=== PATIENT | male | born 1990 | race Caucasian/White ===

== ENCOUNTER 2020-08-05 14:59 | Emergency (ER) | payer BC, SELFPAY ==
[2020-08-05 15:18] VITALS: BP 175/95; PULSE 76; RESP 16; TEMP 36.9; O2SAT 98; BMI 34.2
--- NOTE | 2020-08-05 15:23 | XRR_ITS ---
PROCEDURE INFORMATION: Exam: XR Right Foot Complete Exam date and time: 08/05/2020 3:24 PM Age: 30 years old Clinical indication: Injury or trauma; Injury history: Hit table pain in 4th and 5th toes; Initial encounter; Blunt trauma; Right lesser toe(s) TECHNIQUE: Imaging protocol: XR Right foot. Views: 3 or more views. COMPARISON: No relevant prior studies available. FINDINGS: Bones/joints: There is a comminuted fracture of the diaphysis of the 5th proximal phalanx. No dislocation. No additional acute fracture is identified. Soft tissues: No foreign body. XR/XR foot RT min 3V* [id number] IMPRESSION: There is a comminuted fracture of the diaphysis of the 5th proximal phalanx.
--- NOTE | 2020-08-05 15:23 | W.ED.EXTPRO ---
HPI - Extremity Problem General: Chief complaint: Extremity Injury, Lower Stated complaint: RIGHT FOOT PAIN Time Seen by Provider: 08/05/20 15:02 History of Present Illness: HPI Narrative: Patient got tripped up with a dog yesterday striking his right foot against a hard object and now has pain in his right foot down by the #4 and 5 toes along the lateral border with bruising Complaint: extremity pain Onset (ago): day(s) Pain Consistency: constant Location: right and lower extremity Severity scale (1-10): 5 Quality: aching Radiation: none Relieving factors: immobilization Exacerbating factors: range of motion, weight bearing and walking Associated symptoms: Reports no associated symptoms; Deny chest pain, fever(s) or rash Review of Systems Const: Denies: fever(s), chills or body aches Eyes: Denies: change in vision or blurry vision ENMT: Denies: throat pain or nasal congestion Card: Denies: chest pain or dyspnea on exertion Resp: Denies: dyspnea, productive cough or non-productive cough GI: Denies: abdominal pain, nausea or vomiting : Denies: difficulty urinating Musc: Reports: extremity pain (Right foot) Skin/Breast: Denies: rash Neuro: Denies: headache(s) Psych: Denies: anxiety or depression Kade/Lymph: Denies: easy bruising PFS ED PFSH: Social History (Updated 08/05/20 @ 15:21 by Vane Antonio RN) Smoking and tobacco status: never smoked Alcohol intake: never Physical Exam Const: COMMON NORMALS: no acute distress, average body habitus and patient oriented x3 HENMT: COMMON NORMALS: normocephalic HEAD & SCALP: normal to inspection and normocephalic FACE & SINUS: normal facial exam Eye: COMMON NORMALS: conjunctivae normal GENERAL EYE: appearance normal, both eyes and all related structures CONJUNCTIVA: Yes conjunctivae normal Neck/C-Spine: COMMON NORMALS: no JVD Chest: COMMONS NORMALS: normal inspection of the chest Resp: COMMON NORMALS: normal respiratory effort Cardio: COMMON NORMALS: no JVD Extremity: COMMON NORMALS: normal to inspection and full ROM RIGHT LOWER EXTREMITY: Yes foot & digits (Right foot with tenderness between the #4 and 5 toes with bruising mild bruising along the lateral border sole of foot on) Neuro: COMMON NORMALS: patient oriented x3 Course Vital Signs: Vital signs: Vital Signs Temperature 98.4 F 08/05/20 15:18 Pulse Rate 85 08/05/20 16:04 Respiratory Rate 18 08/05/20 16:04 Blood Pressure 149/88 08/05/20 16:04 Pulse Oximetry 99 08/05/20 16:04 Discharge Plan Discharge Patient Disposition: Home Clinical Impression: Closed fracture of toe Qualifiers: Encounter type: initial encounter Toe: lesser toe Phalanx: proximal Fracture alignment: nondisplaced Laterality: right Qualified Code(s): S92.514A - Nondisplaced fracture of proximal phalanx of right lesser toe(s), initial encounter for closed fracture Condition: Stable Prescriptions: No Action atorvastatin 10 mg Tablet 10 mg PO DAILY RF: 0 baclofen 10 mg Tablet 20 mg PO TID RF: 0 metformin 1,000 mg Tablet 1,000 mg PO BID RF: 0 lisinopril 5 mg Tablet 5 mg PO DAILY RF: 0 Cymbalta 60 mg Capsule,Delayed Release(Dr/Ec) 60 mg PO BEDTIME RF: 0 Lantus Solostar U-100 Insulin 100 unit/mL (3 mL) Insulin Pen See Rx Instructions .ROUTE .COMPLEX RF: 0 gabapentin 300 mg Tablet Extended Release 24 Hr See Rx Instructions .ROUTE .COMPLEX RF: 0 Ocrevus 30 mg/mL Solution See Rx Instructions .ROUTE .COMPLEX RF: 0 Humalog U-100 Insulin See Rx Instructions .ROUTE .COMPLEX RF: 0 Discharge Orders: Discharge Order (Routine); Ordered 08/05/20 Ordered By: Keith Mims Discharge Diet: Usual diet Discharge Activity: Increase activity as tolerated Patient Instructions: Toe Fracture (ED) Activity Restrictions/Additional Instructions: Wear hard soled shoes. Apply ice to area as needed. Can take Tylenol or ibuprofen for discomfort. Keep sanju tape on for the next 2 to 4 weeks. Follow-up with the primary care provider if needed. Discharge Date/Time: 08/05/20 16:05 Coding Level of Care Code ED Audio Visual Design Engineer for Ceasar Fwmari aluisa Exam Comprehensive
[2020-08-05 16:04] VITALS: BP 149/88; PULSE 85; RESP 18; O2SAT 99
== END 2020-08-05 16:05 | disposition home or self-care (01) ==
PROVIDERS: Emergency Provider Nurse Practitioner Family
DX: S92.514A Nondisplaced fracture of proximal phalanx of right lesser toe(s), initial encounter for closed fracture (principal); Z79.4 Long term (current) use of insulin; W01.0XXA Fall on same level from slipping, tripping and stumbling without subsequent striking against object, initial encounter
CPT/HCPCS: 12345; 29550; 73630; 99281; 99282

== ENCOUNTER → 2020-09-28 09:53 | Day surgery (SDC) | payer BC, OTHER, SELFPAY ==
[2020-09-28 10:46] VITALS: BP 166/93; PULSE 90; RESP 18; TEMP 36.1; O2SAT 97; BMI 34.9
[2020-09-28] MEDS: diphenhydrAMINE 50 mg/mL SDV 1mL 25 MG IVP (11:05)
--- NOTE | 2020-09-28 15:33 | SUR.PREOP ---
patient infusion done, ambulated to bathroom. patient will wait required 1 hour post infusion time.
--- NOTE | 2020-09-28 16:32 | SUR.PREOP ---
patient waited for 1 hour post infusion. no reaction noted. pt left ambulatory.
== END ==
PROVIDERS: PCP Family Medicine; Visit Provider Psychiatry & Neurology Neurology
DX: G35 Multiple sclerosis (principal)
CPT/HCPCS: 96365; 96366; J1200; J2350; J7040

== ENCOUNTER 2020-10-01 11:58 | Emergency (ER) | payer BC, SELFPAY ==
[2020-10-01 12:03] VITALS: BP 155/101; PULSE 126; RESP 18; TEMP 36.3; O2SAT 95; BMI 34.9
--- NOTE | 2020-10-01 13:13 | W.ED.NAVMDI ---
HPI - Nausea/Vomiting/Diarrhea General: Chief complaint: Nausea/Vomiting/Diarrhea Stated complaint: Nausea/Weak/Dizzy Time Seen by Provider: 10/01/20 12:15 Source: patient Mode of arrival: ambulatory Limitations: no limitations History of Present Illness: HPI Narrative: Patient is a 30-year-old male with a history of diabetes and multiple sclerosis who presents to the emergency department with nausea and vomiting for a few days. He states that 6 days ago he had an MRI of his brain at [facility] in [place], and then 2 days after that he had these IV infusion of his multiple sclerosis medication. Since then he has been feeling unwell with generalized body aches, nausea and vomiting. He states that he is unable to keep anything down. The nausea and vomiting got really bad about 2 days ago. He has chills and night sweats but no fever on checking. He just feels really bad and unsteady on his feet so he came here to be seen. MD elicited complaint: nausea and vomiting Associated nausea: Yes Associated symtoms: Reports diaphoresis, dizziness, fevers/chills, malaise, myalgias, nausea and weakness; Denies altered mental status, anxiety, bloating, change in vision, chest pain, cough, decreased urine output, dysuria, epistaxis, fatigue, fecal incontinence, headache(s), anorexia, numbness, palpitations, rash, short of breath, syncope, tenesmus or tinnitus Review of Systems General: Reports: 10 or more systems reviewed and unremarkable except in HPI and below Const: Reports: malaise and diaphoresis; Denies: fatigue Eyes: Denies: change in vision ENMT: Denies: tinnitus or epistaxis Card: Denies: chest pain, palpitations or syncope Resp: Denies: dyspnea, productive cough or non-productive cough GI: Reports: nausea; Denies: bloating or fecal incontinence : Denies: dysuria Musc: Denies: neck pain, back pain or extremity swelling Skin/Breast: Denies: rash, pruritus or erythema Neuro: Reports: dizziness; Denies: headache(s) Psych: Denies: anxiety Endo: Denies: polyuria, polydipsia or tired all the time PFSH ED PFSH: Social History Smoking and tobacco status: never smoked Alcohol intake: never Physical Exam Const: COMMON NORMALS: no acute distress, average body habitus, patient oriented x3, no limitations, healthy appearing, alert and well nourished EXAM LIMITATIONS: no altered mental status HENMT: COMMON NORMALS: normocephalic, atraumatic and moist oral mucous membranes HEAD & SCALP: normocephalic and atraumatic Neck/C-Spine: COMMON NORMALS: no meningeal signs and no JVD Resp: COMMON NORMALS: normal respiratory effort, No retractions, No use of accessory muscles, clear to auscultation bilaterally and percussion normal AUSCULTATION: clear to auscultation bilaterally PERCUSSION: percussion normal Cardio: COMMON NORMALS: no JVD, regular rate, regular rhythm, S1 normal heart sound present, S2 normal heart sound present, No gallops present (Cardio), No clicks present (Cardio), No murmurs present (Cardio), No rub (Cardio) and Peripheral pulses 2+ throughout RATE: regular rate RHYTHM: regular rhythm HEART SOUNDS: S1 normal heart sound present and S2 normal heart sound present PERIPHERAL PULSES: Peripheral pulses 2+ throughout GI: COMMON NORMALS: Normal to inspection, nondistended, normoactive bowel sounds present, Soft to palpation, non-tender, No hepatosplenomegaly present, no masses and no bruits PALPATION: Yes Soft to palpation and Yes No hepatosplenomegaly present Extremity: COMMON NORMALS: normal to inspection, full ROM, capillary refill normal, no calf tenderness and no pedal edema Neuro: COMMON NORMALS: patient oriented x3 SENSORIUM/ORIENTATION: Yes alert MENINGEAL SIGNS: Yes no meningeal signs Skin: COMMON NORMALS: no rashes or lesions noted, no wounds, turgor normal, no jaundice, no petechiae and no mottling GENERAL SKIN EXAM: no rashes or lesions noted and turgor normal Course Reevaluation(s): Reevaluation #1: Discussed his lab and imaging findings with him. Negative for acute findings. Negative Covid and influenza. He feels much improved after the IV fluids and he feels that all he needed as he felt he was dehydrated. He wants to be discharged home. We will discharge him home with a prescription for antiemetic. He voiced understanding and is in agreement with the plan. Time: 18:31 Vital Signs: Vital signs: Vital Signs Temperature 97.3 F L 10/01/20 12:03 Pulse Rate 90 10/01/20 19:08 Respiratory Rate 18 10/01/20 16:56 Blood Pressure 141/74 10/01/20 19:08 Pulse Oximetry 96 10/01/20 19:08 MDM - Nausea/Vomiting/Diarrhea MDM Narrative: Medical decision making narrative: Patient who presented to the emergency department with nausea and vomiting. He has a history of multiple sclerosis and symptoms started after he received an infusion of his MS medication. I suspect his nausea and vomiting may be secondary to this but he obtain much improvement after normal saline and an antiemetic. Evaluation in the emergency department was unremarkable and the patient is discharged home to follow-up with his regular providers. Medical Records: Attestation: I reviewed the patient's medical records. Lab Data: Attestation: I reviewed the patient's lab results. Labs: Lab Results 10/01/20 10/01/20 10/01/20 Range/Units 13:25 13:25 13:25 WBC 9.2 (4.0-10.0) 10^3/ uL RBC 5.46 H (4.1-5.3) 10^6/u L Hgb 15.6 (11.7-16.6) g/dL Hct 46.0 (42.0-52.0) % MCV 84.2 (80-94) fL MCH 28.6 (28.0-34.0) pg MCHC 33.9 (30.0-36.0) g/dL RDW 13.2 (12.1-15.1) % Plt Count 278 (130-400) 10^3/c mm MPV 10.8 H (7.4-10.4) fL Neut % (Auto) 66.6 % Lymph % (Auto) 23.5 % Bollinger % (Auto) 7.1 % Eos % (Auto) 1.8 % Baso % (Auto) 0.5 % Neut # (Auto) 6.11 (1.8-7.7) 10^3/u L Lymph # (Auto) 2.2 (0.8-4.8) 10^3/u L Bollinger # (Auto) 0.7 (0.2-0.9) 10^3/u L Eos # (Auto) 0.2 (0.0-0.8) 10^3/u L Baso # (Auto) 0.1 (0.0-0.1) 10^3/u L Nucleated RBC % (a uto) 0 % Nucleated RBCs # 0.0 /100WBC Sodium 136 (136-145) mmol/L Potassium 4.1 (3.5-5.1) mmol/L Chloride 98 (98-107) mmol/L Carbon Dioxide 24 (22-29) mmol/L Anion Gap 18.1 (5-19) BUN 18 (6-20) mg/dL Creatinine 0.6 L (0.7-1.2) mg/dL GFR Calculation 158.2 H (90-130) mL/min Glucose 171 H (65-115) mg/dL Calculated Osmolal ity 288 (285-295) mOsm/k g Lactate 3.0 H (0.5-2.2) mmol/L Calcium 9.8 (8.5-10.5) mg/dL Magnesium 1.8 (1.7-2.3) mg/dL Total Bilirubin 0.5 (0.15-1.2) mg/dL AST 34 (0-40) U/L ALT 55 H (0-41) U/L Alkaline Phosphata se 68 (40-130) IU/L Creatine Kinase 67 (39-308) U/L C-Reactive Protein 8.8 H (0.0-4.9) mg/L Total Protein 7.6 (6.6-8.7) g/dL Albumin 4.8 (3.5-5.2) g/dL Globulin 2.8 (1.3-4.6) g/dL Lipase 18 (13-60) U/L Urine Color (Yellow) Urine Appearance (CLEAR) Urine pH (5-7) Ur Specific Gravit y (1.005-1.030) Urine Protein (Negative) Urine Glucose (UA) (Normal) Urine Ketones (Negative) Urine Blood (Negative) Urine Nitrate (Negative) Urine Bilirubin (Negative) Urine Urobilinogen (Negative) mg/dL Ur Leukocyte Jana ase (Negative) Urine RBC (0-2) /hpf Urine WBC (0-5) /hpf Ur Squamous Epith Cells (0-5) /hpf Amorphous Sediment Urine Bacteria (NONE) /hpf Hyaline Casts /lpf Fine Granular Cast s /lpf Coarse Granular Ca sts /lpf Urine Mucus /hpf Influenza Type A A g (Negative) Influenza Type B A g (Negative) SARS-CoV-2 Ag (Rap id) (Negative) 10/01/20 10/01/20 10/01/20 Range/Units 13:39 13:46 14:13 WBC (4.0-10.0) 10^3/ uL RBC (4.1-5.3) 10^6/u L Hgb (11.7-16.6) g/dL Hct (42.0-52.0) % MCV (80-94) fL MCH (28.0-34.0) pg MCHC (30.0-36.0) g/dL RDW (12.1-15.1) % Plt Count (130-400) 10^3/c mm MPV (7.4-10.4) fL Neut % (Auto) % Lymph % (Auto) % Bollinger % (Auto) % Eos % (Auto) % Baso % (Auto) % Neut # (Auto) (1.8-7.7) 10^3/u L Lymph # (Auto) (0.8-4.8) 10^3/u L Bollinger # (Auto) (0.2-0.9) 10^3/u L Eos # (Auto) (0.0-0.8) 10^3/u L Baso # (Auto) (0.0-0.1) 10^3/u L Nucleated RBC % (a uto) % Nucleated RBCs # /100WBC Sodium (136-145) mmol/L Potassium (3.5-5.1) mmol/L Chloride (98-107) mmol/L Carbon Dioxide (22-29) mmol/L Anion Gap (5-19) BUN (6-20) mg/dL Creatinine (0.7-1.2) mg/dL GFR Calculation (90-130) mL/min Glucose (65-115) mg/dL Calculated Osmolal ity (285-295) mOsm/k g Lactate (0.5-2.2) mmol/L Calcium (8.5-10.5) mg/dL Magnesium (1.7-2.3) mg/dL Total Bilirubin (0.15-1.2) mg/dL AST (0-40) U/L ALT (0-41) U/L Alkaline Phosphata se (40-130) IU/L Creatine Kinase (39-308) U/L C-Reactive Protein (0.0-4.9) mg/L Total Protein (6.6-8.7) g/dL Albumin (3.5-5.2) g/dL Globulin (1.3-4.6) g/dL Lipase (13-60) U/L Urine Color Yellow (Yellow) Urine Appearance Clear (CLEAR) Urine pH 5 (5-7) Ur Specific Gravit y 1.020 (1.005-1.030) Urine Protein Trace (Negative) Urine Glucose (UA) Norm (Normal) Urine Ketones Negative (Negative) Urine Blood Neg (Negative) Urine Nitrate Negative (Negative) Urine Bilirubin 1+ H (Negative) Urine Urobilinogen Norm (Negative) mg/dL Ur Leukocyte Jana ase Negative (Negative) Urine RBC None (0-2) /hpf Urine WBC 0-4 H (0-5) /hpf Ur Squamous Epith Cells None (0-5) /hpf Amorphous Sediment Not Reportable Urine Bacteria Trace (NONE) /hpf Hyaline Casts 15-25 H /lpf Fine Granular Cast s 0-4 H /lpf Coarse Granular Ca sts Rare /lpf Urine Mucus 1+ /hpf Influenza Type A A g Negative (Negative) Influenza Type B A g Negative (Negative) SARS-CoV-2 Ag (Rap id) Negative (Negative) Discharge Plan Discharge Patient Disposition: Home Clinical Impression: Nausea & vomiting Qualifiers: Vomiting type: unspecified Vomiting Intractability: non-intractable Qualified Code(s): R11.2 - Nausea with vomiting, unspecified Condition: Stable Prescriptions: New ondansetron 4 mg tablet,disintegrating 4 mg PO Q8H PRN (Reason: nausea and vomiting) 5 Days Qty: 20 RF: 0 Continued atorvastatin 10 mg Tablet 10 mg PO DAILY RF: 0 baclofen 10 mg Tablet 20 mg PO TID RF: 0 metformin 1,000 mg Tablet 1,000 mg PO BID RF: 0 lisinopril 5 mg Tablet 5 mg PO DAILY RF: 0 duloxetine [Cymbalta] 60 mg Capsule,Delayed Release(Dr/Ec) 60 mg PO BEDTIME RF: 0 Lantus Solostar U-100 Insulin 100 unit/mL (3 mL) Insulin Pen See Rx Instructions .ROUTE .COMPLEX RF: 0 gabapentin 300 mg Tablet Extended Release 24 Hr See Rx Instructions .ROUTE .COMPLEX RF: 0 Ocrevus 30 mg/mL Solution See Rx Instructions .ROUTE .COMPLEX RF: 0 Humalog U-100 Insulin See Rx Instructions .ROUTE .COMPLEX RF: 0 Excedrin Migraine 250-250-65 mg Tablet 1 tab PO Q6H PRN (Reason: Headache) RF: 0 Discharge Orders: Discharge Order (Routine); Ordered 10/01/20 Ordered By: Bess Branch Referrals: Stephania Barboza DO [Primary Care Provider] - 1-3 days Discharge Diet: Usual diet Discharge Activity: Increase activity as tolerated Patient Instructions: Acute Nausea and Vomiting (ED) Activity Restrictions/Additional Instructions: [place] return for new or worsening symptoms. Follow-up with your primary care provider within 3 days. Stand Alone Forms: Work/School Release Coding Level of Care Code ED Lodging House Keeper for Ceasar Fwd Exam Comprehensive
[2020-10-01 13:37] LABS: Basophils # 0.1 10^3/uL (0.0-0.1); Basophils % 0.5 %; Eosinophils # 0.2 10^3/uL (0.0-0.8); Eosinophils % 1.8 %; Hemoglobin 15.6 g/dL (11.7-16.6); Lymphocytes # 2.2 10^3/uL (0.8-4.8); Lymphocytes % 23.5 %; Mean Corpuscular HGB Conc 33.9 g/dL (30.0-36.0); Mean Corpuscular Hemoglobin 28.6 pg (28.0-34.0); Mean Corpuscular Volume 84.2 fL (80-94); Mean Platelet Volume 10.8 fL (7.4-10.4); Monocytes # 0.7 10^3/uL (0.2-0.9); Monocytes % 7.1 %; Neutrophils # 6.11 10^3/uL (1.8-7.7); Neutrophils % 66.6 %; Nucleated Red Blood Cells % 0 %; Platelet Count 278 10^3/cmm (130-400); Red Blood Count 5.46 10^6/uL (4.1-5.3); Red Cell Distribution Width 13.2 % (12.1-15.1); White Blood Count 9.2 10^3/uL (4.0-10.0)
[2020-10-01] MEDS: sodium chloride 0.9% 1,000 ML 999 ML IV (13:43)
[2020-10-01] MEDS: ondansetron 2 mg/ML SDV 2 mL 4 MG IVP (13:45)
[2020-10-01 13:56] LABS: Alanine Aminotransferase 55 U/L (0-41); Albumin Level 4.8 g/dL (3.5-5.2); Alkaline Phosphatase 68 IU/L (40-130); Anion Gap 18.1 (5-19); Aspartate Amino Transferase 34 U/L (0-40); Blood Urea Nitrogen 18 mg/dL (6-20); C Reactive Protein 8.8 mg/L (0.0-4.9); Calcium 9.8 mg/dL (8.5-10.5); Carbon Dioxide 24 mmol/L (22-29); Chloride 98 mmol/L (98-107); Creatine Phosphokinase 67 U/L (39-308); Globulin 2.8 g/dL (1.3-4.6); Glomerular Filtration Rate 158.2 mL/min (90-130); Glucose 171 mg/dL (65-115); Lipase 18 U/L (13-60); Magnesium 1.8 mg/dL (1.7-2.3); Osmolality Calculated 288 mOsm/kg (285-295); Potassium 4.1 mmol/L (3.5-5.1); Sodium 136 mmol/L (136-145); Total Bilirubin 0.5 mg/dL (0.15-1.2); Total Protein 7.6 g/dL (6.6-8.7)
[2020-10-01 14:04] VITALS: BP 137/80; PULSE 86; RESP 17; O2SAT 97
[2020-10-01 14:15] VITALS: BP 137/80; PULSE 87; RESP 18; O2SAT 96
[2020-10-01 15:00] LABS: Add Urine Microscopic? YES; Bacteria Urine TRACE /hpf; Bilirubin Urine 1+ (Negative); Blood Urine Neg (Negative); Glucose Urine UA Norm (Normal); Ketones Urine Negative (Negative); Leukocyte Esterase Urine Negative (Negative); Mucus Urine 1+ /hpf; Nitrate Urine Negative (Negative); Protein Urine Trace (Negative); Urine Appearance Clear (CLEAR); Urine Color Yellow (Yellow); Urobilinogen Urine Norm (Negative); WBC Urine 0-4 /hpf (0-5); pH Urine 5 (5-7)
[2020-10-01 15:01] LABS: Influenza A by IFA Negative (Negative)
[2020-10-01 15:01] LABS: Add Urine Culture? No; Coarse Granular Casts Urine RARE /lpf; Fine Granular Casts Urine 0-4 /lpf; Hyaline Casts Urine 15-25 /lpf
[2020-10-01 15:01] LABS: SARS Covid-2 Antigen Negative (Negative)
[2020-10-01 15:02] LABS: Influenza B by IFA Negative (Negative)
[2020-10-01 15:56] VITALS: BP 118/57; PULSE 82; RESP 18; O2SAT 92
[2020-10-01 16:56] VITALS: BP 139/62; PULSE 80; RESP 18; O2SAT 95
[2020-10-01 19:08] VITALS: BP 141/74; PULSE 90; O2SAT 96
== END 2020-10-01 19:10 | disposition home or self-care (01) ==
PROVIDERS: Emergency Provider Family Medicine; PCP Family Medicine
DX: R11.2 Nausea with vomiting, unspecified (principal); Z79.4 Long term (current) use of insulin
CPT/HCPCS: 12345; 80053; 81001; 82550; 83605; 83690; 83735; 85025; 86140; 87426; 87804; 96361; 96374; 96375; 99282; 99283; J2405; J7030

== ENCOUNTER 2021-01-15 19:12 | Emergency (ER) | payer BC, SELFPAY ==
--- NOTE | 2021-01-15 19:16 | XRR_ITS ---
PROCEDURE INFORMATION: Exam: XR Left Ribs with PA Chest, 3 Views Exam date and time: 01/15/2021 7:28 PM Age: 30 years old Clinical indication: Injury or trauma; Rib area, left side; Blunt trauma; Injury date: 01/09/2021; Injury details: Fall on ice; Patient HX: Left sided rib pain TECHNIQUE: Imaging protocol: XR Left ribs 3 views with PA chest. COMPARISON: No relevant prior studies available. FINDINGS: Lungs: Unremarkable. No consolidation. Pleural spaces: Unremarkable. No pleural effusion. No pneumothorax. Heart/Mediastinum: Unremarkable. No cardiomegaly. Bones/joints: No displaced rib fracture. There is some irregularity of the lower left anterior costochondral cartilages. XR/XR ribs LT mn 3V w [id number] IMPRESSION: 1. No acute displaced rib fracture. 2. Some irregularity of the lower left anterior costochondral cartilages may reflect normal variation or possibly a chondral fracture.
[2021-01-15 19:24] VITALS: BP 152/106; PULSE 85; RESP 16; TEMP 36.6; O2SAT 98; BMI 35.6
--- NOTE | 2021-01-15 19:57 | ED_ITS ---
HPI - General Adult General: Chief complaint: General Medical Stated complaint: PT suspects broken rib left side Time Seen by Provider: 01/15/21 19:31 History of Present Illness: HPI narrative: Pleasant 30-year-old male patient presents to the emergency department with left front chest wall swelling and pain. He reports sustained a fall December, slipped on the ice, hit his chest on a step while taking out the dog. Incident occurred at home. He reports pain has continued along with swelling. He denies bruising, denies hitting his head or other injuries. He reports eating and drinking normally, denies nausea or abdominal pain. Onset (ago): day(s) (5) Location: chest Radiation: non-radiation Severity: moderate Quality: stabbing, aching and sharp Pain Consistency: intermittent and other (worsening) Exacerbating factors: movement and other (riding in the car on bumpy road) Associated symptoms: Reports chest pain; Deny diaphoresis, dyspnea, headache(s), nausea, rash, palpitations or vomiting Treatments prior to arrival: none Review of Systems General: Reports: 10 or more systems reviewed and unremarkable except in HPI and below Const: Denies: fever(s), chills or diaphoresis Eyes: Denies: blurry vision or eye redness ENMT: Denies: throat pain, dental pain or disequilibrium Card: Reports: chest pain; Denies: palpitations, swelling of feet/ankles, lightheadedness or dyspnea on ex ertion Resp: Denies: dyspnea, productive cough, non-productive cough or wheezing GI: Denies: abdominal pain, nausea or vomiting : Denies: dysuria Musc: Denies: neck pain, back pain, joint pain, joint swelling, muscle cramps or muscle weakness Skin/Breast: Denies: rash, pruritus, skin tenderness or changing lesions Neuro: Denies: headache(s), weakness in extremities or behavioral changes Psych: Denies: anxiety or depression Kade/Lymph: Denies: easy bruising PFS ED PFSH: Medical History (Updated 01/15/21 @ 20:41 by GURPREET Ward) Diabetes Multiple sclerosis Social History Smoking and tobacco status: never smoked Alcohol intake: never Physical Exam Const: COMMON NORMALS: no acute distress, patient oriented x3, healthy appearing and alert GENERAL APPEARANCE: cooperative, comfortable and well hydrated HENMT: COMMON NORMALS: normocephalic, Normal external nose present and moist oral mucous membranes HEAD & SCALP: normocephalic NOSE: Normal external nose present Eye: COMMON NORMALS: Equal, round and reactive pupils present and EOMs intact bilaterally GENERAL EYE: appearance normal, both eyes and all related structures PUPIL: Yes Equal, round and reactive pupils present Neck/C-Spine: COMMON NORMALS: full ROM, no lymphadenopathy and supple GENERAL: Yes normal visual inspection and Yes trachea midline CERVICAL SPINE: Yes cervical ROM normal, No pain with cervical ROM and No Cervical spine tenderness Lymph: LYMPHATIC: no lymphadenopathy noted Chest: COMMONS NORMALS: normal inspection of the chest and normal inspection of the breasts CHEST: Yes Symmetrical chest wall rise and Yes tenderness (negative ecchymosis or erythema) costochondral junction (left lower) and costal cartilage Laterality: left Breast/axilla inspection: Yes normal inspection of the breasts Resp: COMMON NORMALS: normal respiratory effort, No retractions, No use of accessory muscles and clear to auscultation bilaterally EFFORT & INSPECTION: Yes able to speak in complete sentences, No respiratory distress, No decreased respiratory effort and No labored AUSCULTATION: clear to auscultation bilaterally and no wheezes Cardio: COMMON NORMALS: regular rate, regular rhythm, S1 normal heart sound present, S2 normal heart sound present and Peripheral pulses 2+ throughout RATE: regular rate RHYTHM: regular rhythm HEART SOUNDS: S1 normal heart sound present and S2 normal heart sound present PERIPHERAL PULSES: Peripheral pulses 2+ throughout GI: COMMON NORMALS: Normal to inspection, nondistended, normoactive bowel sounds present, Soft to palpation and non-tender INSPECTION: Yes normal to inspection, No abdominal wall ecchymosis, No Abdominal wall edema, No abdominal distension, Yes central obesity, No visible herniation and No Localized GI swelling present AUSCULTATION: Yes normoactive bowel sounds PALPATION: Yes Soft to palpation, No Firmness to palpation present (GI) and No Tenderness to palpation present (GI) OTHER: left upper abdomen palpated deeply for spleen tenderness - none appreciate, point tenderness of the lower cartilage and anterior wall rib, #7 through #12 : COMMON NORMALS: Yes no CVA tenderness BLADDER/KIDNEY EXAM: Yes no CVA tenderness Back/Pelvis: COMMON NORMALS: no CVA tenderness and thoracic and lumbar spine normal to inspection Extremity: COMMON NORMALS: normal to inspection and capillary refill normal Neuro: COMMON NORMALS: patient oriented x3 and no focal motor deficits SENSORIUM/ORIENTATION: Yes alert Psych: COMMON NORMALS: mental status grossly normal, Normal thought process present and cooperative ACTIVITY/MOTOR BEHAVIOR: Yes appropriate eye contact THOUGHT PROCESS: Normal thought process present Skin: COMMON NORMALS: no rashes or lesions noted, no wounds and turgor normal GENERAL SKIN EXAM: no rashes or lesions noted, elasticity normal and turgor normal Course Vital Signs: Vital signs: Vital Signs Temperature 97.8 F 01/15/21 19:24 Pulse Rate 85 01/15/21 19:24 Respiratory Rate 16 01/15/21 20:45 Blood Pressure 152/106 01/15/21 19:24 Pulse Oximetry 98 01/15/21 19:24 MDM - General Adult MDM Narrative: Medical decision making narrative: 30-year-old male patient presents with chest contusion, left anterior chest wall. X-ray revealed irregu larity of the left lower anterior costochondral cartilage which could reflect possible fracture. Case discussed with Dr. Pro, prescription for hydrocodone as well as ibuprofen was provided to the patient. Imaging Data^: Xray Ortho: Radiologist's impression: [address] [address] XRay Report Signed Patient: Adolph Isabel #: [id number] : 1990Acct#:[id number] Age/Sex: 30 / MADM Date: 01/15/21 Loc: ERRoom/Bed: Attending Dr: Ordering Provider/Ordering MD: Manjit Sigala MD Date of Service: 01/15/21 Procedure(s): XR ribs LT mn 3V w CXR1V 75094 Accession Number(s): [id number] Report Number: [id number] PROCEDURE INFORMATION: Exam: XR Left Ribs with PA Chest, 3 Views Exam date and time: 01/15/2021 7:28 PM Age: 30 years old Clinical indication: Injury or trauma; Rib area, left side; Blunt trauma; Injury date: 01/09/2021; Injury details: Fall on ice; Patient HX: Left sided rib pain TECHNIQUE: Imaging protocol: XR Left ribs 3 views with PA chest. COMPARISON: No relevant prior studies available. FINDINGS: Lungs: Unremarkable. No consolidation. Pleural spaces: Unremarkable. No pleural effusion. No pneumothorax. Heart/Mediastinum: Unremarkable. No cardiomegaly. Bones/joints: No displaced rib fracture. There is some irregularity of the lower left anterior costochondral cartilages. XR/XR ribs LT mn 3V w CXR1V 30016 IMPRESSION: 1. No acute displaced rib fracture. 2. Some irregularity of the lower left anterior costochondral cartilages may reflect normal variation or possibly a chondral fracture. Dictated By:Damien Terrell Signed By:Damien TerrellSineil Date/Time:01/15/211953 DD/ 52 Discharge Plan Discharge Patient Disposition: Home Clinical Impression: Acute costochondritis Fall Qualifiers: Encounter type: initial encounter Qualified Code(s): W19.XXXA - Unspecified fall, initial encounter Chest wall contusion Qualifiers: Encounter type: initial encounter Laterality: left Qualified Code(s): S20.212A - Contusion of left front wall of thorax, initial encounter Condition: Stable Prescriptions: New hydrocodone-acetaminophen 5-325 mg tablet 1 tab PO Q4H PRN (Reason: pain) Qty: 7 RF: 0 No Action atorvastatin 10 mg Tablet 10 mg PO DAILY RF: 0 baclofen 10 mg Tablet 20 mg PO TID RF: 0 metformin 1,000 mg Tablet 1,000 mg PO BID RF: 0 lisinopril 5 mg Tablet 5 mg PO DAILY RF: 0 duloxetine [Cymbalta] 60 mg Capsule,Delayed Release(Dr/Ec) 60 mg PO BEDTIME RF: 0 Lantus Solostar U-100 Insulin 100 unit/mL (3 mL) Insulin Pen See Rx Instructions .ROUTE .COMPLEX RF: 0 gabapentin 300 mg Tablet Extended Release 24 Hr See Rx Instructions .ROUTE .COMPLEX RF: 0 Ocrevus 30 mg/mL Solution See Rx Instructions .ROUTE .COMPLEX RF: 0 Humalog U-100 Insulin See Rx Instructions .ROUTE .COMPLEX RF: 0 Excedrin Migraine 250-250-65 mg Tablet 1 tab PO Q6H PRN (Reason: Headache) RF: 0 Discharge Orders: Discharge ED (Routine); Ordered 01/15/21 Ordered By: Clarisa Feliz Referrals: Stephania Barboza DO [Primary Care Provider] - Discharge Activity: Limit activity as instructed Patient Instructions: Costochondritis (ED), Contusion in Adults (ED), Opioid Safety Activity Restrictions/Additional Instructions: Follow-up with your primary care provider if pain persists next 7 to 10 days Apply cool compresses to the affected area several times daily to help with pain and swelling Return the emergency department if you develop difficulty breathing, worsening rib pain or other concerning symptoms Coding Level of Care Code ED Buffing Wheel Inspector for Chg Fwd Exam Comprehensive
[2021-01-15] MEDS: ibuprofen 600 mg Tablet PO (20:42)
[2021-01-15] MEDS: HYDROcodone-acetaminophen 5-325 mg Tablet 1 TAB PO (20:42)
[2021-01-15 20:45] VITALS: RESP 16
== END 2021-01-15 20:46 | disposition home or self-care (01) ==
PROVIDERS: Emergency Provider Nurse Practitioner Family; PCP Family Medicine
DX: S20.212A Contusion of left front wall of thorax, initial encounter (principal); M94.0 Chondrocostal junction syndrome [Tietze]; Z79.4 Long term (current) use of insulin; E11.9 Type 2 diabetes mellitus without complications; G35 Multiple sclerosis; W00.0XXA Fall on same level due to ice and snow, initial encounter
CPT/HCPCS: 71101; 99283

== ENCOUNTER → 2021-02-20 14:49 | Outpatient (BNVA) | payer OTHER, SELFPAY | PROVIDERS: PCP Family Medicine; Visit Provider Nurse Practitioner | DX: S90.32XA Contusion of left foot, initial encounter (principal); X58.XXXA Exposure to other specified factors, initial encounter | CPT/HCPCS: 73630 ==

== ENCOUNTER 2021-04-03 08:12 | Outpatient (CLI) | payer BC, OTHER, SELFPAY ==
[2021-04-03] MEDS: acetaminophen 500 mg Tablet 1000 MG PO (08:58)
[2021-04-03] MEDS: diphenhydrAMINE 50 mg/mL SDV 1mL 12.5 MG IVP (09:06)
== END 2021-04-03 08:13 | disposition home or self-care (01) ==
LOC: NSACUTE 08:13
PROVIDERS: PCP Family Medicine; Visit Provider Specialist
DX: G35 Multiple sclerosis (principal); G54.1 Lumbosacral plexus disorders
CPT/HCPCS: 96365; 96366; 96375; 99204; J1200; J2350; J2930; J7040

== ENCOUNTER 2021-09-23 08:00 | Outpatient (CLI) | payer BC, SELFPAY | END 2021-09-23 08:01 | disposition home or self-care (01) | LOC: NSACUTE 09-30 10:01 | PROVIDERS: PCP Family Medicine; Visit Provider Specialist | DX: G35 Multiple sclerosis (principal) | CPT/HCPCS: 99214 ==

== ENCOUNTER 2021-10-08 07:48 | Outpatient (CLI) | payer BC, OTHER, SELFPAY ==
[2021-10-08] VITALS (7 sets, daily range): BP systolic 118–148; BP diastolic 60–84; PULSE 74–99; RESP 18; TEMP 36.2–37.3; O2SAT 96–98
[2021-10-08] MEDS: acetaminophen 500 mg Tablet 1000 MG PO (08:42)
[2021-10-08] MEDS: sodium chloride 0.9% 250 ML 50 ML IV (08:42)
[2021-10-08] MEDS: diphenhydrAMINE 50 mg/mL SDV 1mL 25 MG IV (08:43)
--- NOTE | 2021-10-08 13:00 | PC.NURSE ---
Patient's post infusion pulse was elevated, averaging 100bpm. After his one hour observation, he continued to maintain this rate. I spoke with Jill at Dr. Burnette's office, and she stated that she would inform Dr. Burnette of this. He was released after visiting with their office. dh
== END 2021-10-08 07:49 | disposition home or self-care (01) ==
PROVIDERS: PCP Family Medicine; Visit Provider Specialist
DX: G35 Multiple sclerosis (principal)
CPT/HCPCS: 96365; 96366; 96375; J1200; J2350; J2930; J7040; J7050

== ENCOUNTER 2021-10-11 21:55 | Emergency (ER) | payer OTHER, SELFPAY ==
[2021-10-11 21:58] VITALS: BP 161/98; PULSE 105; RESP 18; TEMP 36.4; O2SAT 96; BMI 35.6
--- NOTE | 2021-10-11 21:58 | W.ED.LOWEXIN ---
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 Patient reports pain to the lateral posterior ankle. Patient appears well. No obvious deformity is noted. Review of Systems General: Reports: 10 or more systems reviewed and unremarkable except in HPI and below Musc: Reports: other (Left ankle injury) PFS ED PFSH: Medical History Diabetes Multiple sclerosis Family History Other Cancer Diabetes Social History Smoking and tobacco status: never smoked Alcohol intake: never History of recent travel: No Physical Exam Const: COMMON NORMALS: no acute distress and patient oriented x3 GENERAL APPEARANCE: cooperative HENMT: COMMON NORMALS: normocephalic HEAD & SCALP: normal to inspection and normocephalic Eye: GENERAL EYE: appearance normal, both eyes and all related structures Neck/C-Spine: COMMON NORMALS: full ROM Chest: COMMONS NORMALS: normal inspection of the chest Resp: COMMON NORMALS: normal respiratory effort EFFORT & INSPECTION: Yes able to speak in complete sentences Cardio: COMMON NORMALS: regular rate and regular rhythm RATE: regular rate RHYTHM: regular rhythm GI: COMMON NORMALS: non-tender Extremity: NARRATIVE EXTREMITY EXAM: Tenderness to the lateral left posterior ankle. No obvious deformity. Pulses intact. Cap refill is intact. Sensation is normal. Neuro: COMMON NORMALS: patient oriented x3 and moves all extremities Psych: COMMON NORMALS: mental status grossly normal and cooperative Skin: COMMON NORMALS: no rashes or lesions noted GENERAL SKIN EXAM: no rashes or lesions noted Course Vital Signs: Vital signs: Vital Signs Temperature 97.6 F 10/11/21 21:58 Pulse Rate 105 H 10/11/21 21:58 Respiratory Rate 18 10/11/21 21:58 Blood Pressure 161/98 10/11/21 21:58 Pulse Oximetry 96 10/11/21 21:58 MDM - Extremity Injury (Lower) MDM Narrative: Medical decision making narrative: 31-year-old male patient comes in for evaluation of injury to the left ankle. On exam patient has some posterior left ankle tenderness with some mild swelling to the lateral aspect. Differential diagnosis includes but not limited to fracture, sprain, dislocation. X-ray noted no fracture or dislocation. Reviewed exam with patient with recommendations for treatment and follow-up. Patient reported understanding and agreed to plan. Discharge Plan Discharge Patient Disposition: Home Clinical Impression: Ankle sprain and strain Condition: Stable Prescriptions: No Action atorvastatin 10 mg Tablet 10 mg PO DAILY RF: 0 baclofen 10 mg Tablet 20 mg PO TID RF: 0 metformin 1,000 mg Tablet 1,000 mg PO BID RF: 0 lisinopril 5 mg Tablet 5 mg PO DAILY RF: 0 duloxetine [Cymbalta] 60 mg Capsule,Delayed Release(Dr/Ec) 60 mg PO BEDTIME RF: 0 Lantus Solostar U-100 Insulin 100 unit/mL (3 mL) Insulin Pen See Rx Instructions .ROUTE .COMPLEX RF: 0 gabapentin 300 mg Tablet Extended Release 24 Hr See Rx Instructions .ROUTE .COMPLEX RF: 0 Ocrevus 30 mg/mL Solution See Rx Instructions .ROUTE .COMPLEX RF: 0 Humalog U-100 Insulin See Rx Instructions .ROUTE .COMPLEX RF: 0 Excedrin Migraine 250-250-65 mg Tablet 1 tab PO Q6H PRN (Reason: Headache) RF: 0 Discharge Orders: Discharge ED (Routine); Ordered 10/11/21 Ordered By: Chris Abraham Referrals: Stephania Barboza DO [Primary Care Provider] - Discharge Diet: Usual diet Discharge Activity: Increase activity as tolerated Patient Instructions: Ankle Sprain (ED), Opioid Safety Activity Restrictions/Additional Instructions: Home and rest. Activity as tolerated. Use acetaminophen or ibuprofen for pain. Use an elastic bandage for comfort. Use crutches until he can bear weight comfortably on the ankle. Follow-up with primary care in 3 to 5 days for recheck. Return to the ER for new concerns. Coding Level of Care Code ED Director Of Database Marketing for Ceasar Fwmaria luisa Exam Comprehensive
--- NOTE | 2021-10-11 22:01 | XRR_ITS ---
PROCEDURE INFORMATION: Exam: XR Left Ankle Exam date and time: 10/11/2021 10:01 PM Age: 31 years old Clinical indication: Pain; Ankle; Left; Additional info: Injury TECHNIQUE: Imaging protocol: XR Left ankle. Views: 3 or more views. COMPARISON: No relevant prior studies available. FINDINGS: Bones/joints: No acute fracture. No dislocation. Normal bone mineralization. No joint effusion. Joint spaces are maintained. Moderate-sized calcified enthesophyte at the Achilles tendon insertion. Accessory ossicle adjacent to the cuboid bone. Soft tissues: No soft tissue swelling. No radiopaque foreign body. XR/XR ankle LT min 3V* [id number] IMPRESSION: 1. No acute fracture. Followup imaging recommended in 7-14 days if clinical concern for fracture persists. 2. Incidental/nonacute findings are listed in the report. Radiation Dose CTDIVOL = (mGy): DLP = (mGy-cm)
== END 2021-10-11 23:48 | disposition home or self-care (01) ==
PROVIDERS: Emergency Provider Nurse Practitioner Family; PCP Family Medicine
DX: S93.402A Sprain of unspecified ligament of left ankle, initial encounter (principal); S96.912A Strain of unspecified muscle and tendon at ankle and foot level, left foot, initial encounter; X50.1XXA Overexertion from prolonged static or awkward postures, initial encounter; Z79.84 Long term (current) use of oral hypoglycemic drugs; Z79.4 Long term (current) use of insulin; E11.9 Type 2 diabetes mellitus without complications; G35 Multiple sclerosis
CPT/HCPCS: 73610; 99283; 99291; E0114

== ENCOUNTER 2021-12-04 05:48 | Emergency (ER) | payer BC, SELFPAY ==
[2021-12-04 05:49] VITALS: BP 170/78; PULSE 89; RESP 24; O2SAT 94; BMI 34.2
[2021-12-04 05:59] LABS: Glucose Point of Care 316 mg/dL (70-110)
[2021-12-04 06:00] VITALS: BP 174/86; PULSE 99; RESP 21; O2SAT 95
--- NOTE | 2021-12-04 06:15 | ECG_ITS ---
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 Measurements Intervals [place] Rate: 96 P: 0 IN: 153 QRS: 129 QRSD: 105 T: 120 QT: 332 QTc: 421 Interpretive Statements SINUS RHYTHM POSSIBLE LEFT ATRIAL ENLARGEMENT [-0.1mV P-WAVE IN V1/V2] POSSIBLE RIGHT VENTRICULAR HYPERTROPHY [SOME/ALL OF: PROMINENT R IN V1, LATE TRANSITION, RAD, LEBRON, SSS] No previous ECG available for comparison Electronically Signed On 12-04-2021 19:55:12 [email or web address] by Marko Durán M.D. [id number]
--- NOTE | 2021-12-04 06:15 | XRR_ITS ---
PROCEDURE INFORMATION: Exam: XR Chest Exam date and time: 12/04/2021 6:15 AM Age: 31 years old Clinical indication: Patient HX: SOB coughing since yesteday; Additional info: Dyspnea/cough TECHNIQUE: Imaging protocol: XR of the chest. Views: 1 view. Total images: 1 COMPARISON: CR XR ribs LT mn 3V w CXR1V [id number] 01/15/2021 7:32 PM FINDINGS: Lungs: Unremarkable. No consolidation. Pleural spaces: Unremarkable. No pleural effusion. No pneumothorax. Heart/Mediastinum: Unremarkable. No cardiomegaly. Bones/joints: Unremarkable. XR/XR chest 1V portable [id number] IMPRESSION: No acute findings.
--- NOTE | 2021-12-04 06:21 | W.ED.SOB ---
HPI - SOB/Dyspnea General: Chief Complaint: Shortness of Breath/Dyspnea Stated Complaint: sob Time Seen by Provider: 12/04/21 06:01 History of Present Illness: HPI Narrative: 31 year old male presents to ER via EMS for shortness of breath. Started this morning when he woke up. Reports it hurts to take a deep breath . Reports cough. Denies fever, chills, and muscle aches. Tried using an inhaler this morning, but it made the SOB worse. Reports history of multiple sclerosis and T2DM. Reports his sugars are difficult to control at home. Patient is unsure if he took his insulin yesterday night. MD elicited complaint: shortness of breath and cough Pertinent past history: asthma and diabetes Onset (ago): hour(s) Associated symptoms: Reports cough; Deny abdominal pain, chest pain, dizziness, fever(s), nausea or vomiting Review of Systems Const: Denies: fever(s) ENMT: Denies: throat pain, ear or mastoid pain, nasal discharge or nasal congestion Card: Denies: chest pain Resp: Denies: dyspnea, productive cough or non-productive cough GI: Denies: abdominal pain, nausea or vomiting : Denies: flank pain, dysuria, urinary frequency or urinary urgency Skin/Breast: Denies: rash or pruritus Neuro: Denies: dizziness PFSH ED PFSH: Medical History Diabetes Multiple sclerosis Family History Other Cancer Diabetes Social History Smoking and tobacco status: never smoked Alcohol intake: never History of recent travel: No Physical Exam Const: COMMON NORMALS: no acute distress GENERAL APPEARANCE: cooperative and comfortable ORIENTATION/CONSCIOUSNESS: Yes awake, Yes oriented to person, Yes oriented to place and Yes oriented to time OTHER: Patient is drowsy. Neck/C-Spine: COMMON NORMALS: no JVD Resp: AUSCULTATION: rhonchi and wheezes Cardio: COMMON NORMALS: no JVD, regular rate, regular rhythm and No murmurs present (Cardio) RATE: regular rate RHYTHM: regular rhythm GI: COMMON NORMALS: Soft to palpation and No hepatosplenomegaly present PALPATION: Yes Soft to palpation, No Tenderness to palpation present (GI), No Guarding due to palpation present (GI) and Yes No hepatosplenomegaly present Neuro: SENSORIUM/ORIENTATION: Yes oriented to person, Yes oriented to place and Yes oriented to time Skin: COMMON NORMALS: no rashes or lesions noted GENERAL SKIN EXAM: no rashes or lesions noted Course Vital Signs: Vital signs: Vital Signs Pulse Rate 105 H 12/04/21 09:33 Respiratory Rate 20 H 12/04/21 08:15 Blood Pressure 126/67 12/04/21 09:33 Pulse Oximetry 95 12/04/21 09:33 MDM - SOB/Dyspnea MDM Narrative: Medical decision making narrative: Labs imaging and EKG reviewed. Patient is stable at this point oxygenation is good we will go ahead and discharge him home make arrangements for him to get monoclonal antibodies as an outpatient. Lab Data: Labs: Lab Results 12/04/21 12/04/21 12/04/21 05:35 05:35 05:56 WBC 5.8 10^3/uL 10^3/ uL (4.0-10.0) RBC 5.32 10^6/uL H 10 ^6/uL (4.1-5.3) Hgb 15.7 g/dL g/dL (11.7-16.6) Hct 44.5 % % (42.0-52.0) MCV 83.6 fl fl (80-94) MCH 29.5 pg pg (28.0-34.0) MCHC 35.3 g/dL g/dL (30.0-36.0) RDW 12.5 % % (12.1-15.1) Plt Count 226 10^3/cmm 10^3 /cmm (130-400) MPV 12.4 fL H fL (7.4-10.4) Neut % (Auto) 71.7 % % Lymph % (Auto) 13.5 % % [place] % (Auto) 9.8 % % Eos % (Auto) 2.9 % % Baso % (Auto) 0.9 % % Neut # (Auto) 4.15 10^3/uL 10^3 /uL (1.8-7.7) Lymph # (Auto) 0.8 10^3/uL 10^3/ uL (0.8-4.8) [place] # (Auto) 0.6 10^3/uL 10^3/ uL (0.2-0.9) Eos # (Auto) 0.2 10^3/uL 10^3/ uL (0.0-0.8) Baso # (Auto) 0.1 10^3/uL 10^3/ uL (0.0-0.1) Nucleated RBC % (a uto) 0 % % Nucleated RBCs # 0.0 /100WBC /100W BC Specimen Type Sample Site ABG pH ABG pCO2 ABG pO2 ABG HCO3 ABG O2 Saturation ABG Base Excess Keenan Test A-a O2 Gradient Hematocrit Hgb O2 Saturation Carboxyhemoglobin Methemoglobin Total Hemoglobin Ionized Calcium O2 Delivery Device Brilliandeer Looper ID Sodium 136 mmol/L mmol/L (136-145) Potassium 4.0 mmol/L mmol/L (3.5-5.1) Chloride 99 mmol/L mmol/L (98-107) Carbon Dioxide 18 mmol/L L mmol/ L (22-29) Anion Gap 23.0 H (5-19) BUN 8 mg/dL mg/dL (6-20) Creatinine 0.6 mg/dL L mg/dL (0.7-1.2) GFR Calculation 157.1 mL/min H mL /min (90-130) Glucose 309 mg/dL H mg/dL (65-115) POC Glucose 316 mg/dL H mg/dL (70-110) Calculated Osmolal ity 292 mOsm/kg mOsm/ kg (285-295) Calcium 9.0 mg/dL mg/dL (8.5-10.5) Total Bilirubin 0.4 mg/dL mg/dL (0.15-1.2) AST 76 U/L H U/L (0-40) ALT 75 U/L H U/L (0-41) Alkaline Phosphata se 90 IU/L IU/L (40-130) Creatine Kinase 46 U/L U/L (39-308) Total Protein 7.1 g/dL g/dL (6.6-8.7) Albumin 4.6 g/dL g/dL (3.5-5.2) Globulin 2.5 g/dL g/dL (1.3-4.6) Urine Color Urine Appearance Urine pH Ur Specific Gravit y Urine Protein Urine Glucose (UA) Urine Ketones Urine Blood Urine Nitrate Urine Bilirubin Urine Urobilinogen Ur Leukocyte Jana ase Coronavirus 229E ( PCR) SARS-CoV-2 (PCR) 12/04/21 12/04/21 12/04/21 06:15 06:40 06:49 WBC RBC Hgb Hct MCV MCH MCHC RDW Plt Count MPV Neut % (Auto) Lymph % (Auto) [place] % (Auto) Eos % (Auto) Baso % (Auto) Neut # (Auto) Lymph # (Auto) [place] # (Auto) Eos # (Auto) Baso # (Auto) Nucleated RBC % (a uto) Nucleated RBCs # Specimen Type Arterial Sample Site Radial, right ABG pH 7.42 (7.35-7.45) ABG pCO2 35.2 mmHg mmHg (35-45) ABG pO2 82.7 mmHg mmHg (80.0-100.0) ABG HCO3 22.6 mmol/L mmol/ L (22-26) ABG O2 Saturation 95.7 ABG Base Excess -1.4 mmol/L mmol/ L (-2.0-2.0) Keenan Test Pos A-a O2 Gradient 3.0 mmHg L mmHg (5-10) Hematocrit 46.2 % % (42-52) Hgb O2 Saturation 95.5 % % (95-100) Carboxyhemoglobin < 0.0 %THgb L %TH gb (0.4-20.1) Methemoglobin 0.4 % % (0.4-1.5) Total Hemoglobin 15.1 g/dL g/dL (14-18) Ionized Calcium 1.2 mmol/L mmol/L (1.1-1.4) O2 Delivery Device Room air Brilliandeer Looper ID [id number] Sodium 139.0 mmol/L mmol /L (131-143) Potassium 3.8 mmol/L mmol/L (3.5-5.0) Chloride Carbon Dioxide Anion Gap BUN Creatinine GFR Calculation Glucose 313.0 mg/dL H mg/ dL (70-115) POC Glucose Calculated Osmolal ity Calcium Total Bilirubin AST ALT Alkaline Phosphata se Creatine Kinase Total Protein Albumin Globulin Urine Color Yellow (Yellow) Urine Appearance Clear (CLEAR) Urine pH 5 (5-7) Ur Specific Gravit y 1.015 (1.005-1.030) Urine Protein Neg (Negative) Urine Glucose (UA) 4+ H (Normal) Urine Ketones 2+ H (Negative) Urine Blood Neg (Negative) Urine Nitrate Negative (Negative) Urine Bilirubin Neg (Negative) Urine Urobilinogen Norm mg/dL mg/dL (Negative) Ur Leukocyte Jana ase Negative (Negative) Coronavirus 229E ( PCR) Not detected (NOT DETECT) SARS-CoV-2 (PCR) Detected A (NOT DETECT) Discharge Plan Discharge Patient Disposition: Home Clinical Impression: COVID-19 Condition: Stable Prescriptions: No Action Ocrevus 30 mg/mL solution 600 mg IV ONCE 180 Days Qty: 10 RF: 1 atorvastatin 10 mg Tablet 10 mg PO DAILY RF: 0 baclofen 10 mg Tablet 20 mg PO TID RF: 0 metformin 1,000 mg Tablet 1,000 mg PO BID RF: 0 lisinopril 5 mg Tablet 5 mg PO DAILY RF: 0 duloxetine [Cymbalta] 60 mg Capsule,Delayed Release(Dr/Ec) 60 mg PO BEDTIME RF: 0 Lantus Solostar U-100 Insulin 100 unit/mL (3 mL) Insulin Pen See Rx Instructions .ROUTE .COMPLEX RF: 0 gabapentin 300 mg Tablet Extended Release 24 Hr See Rx Instructions .ROUTE .COMPLEX RF: 0 Humalog U-100 Insulin See Rx Instructions .ROUTE .COMPLEX RF: 0 Excedrin Migraine 250-250-65 mg Tablet 1 tab PO Q6H PRN (Reason: Headache) RF: 0 Discharge Orders: Discharge ED (Routine); Ordered 12/04/21 Ordered By: Brett Gonzalez Referrals: Stephania Barboza DO [Primary Care Provider] - Discharge Diet: Usual diet Discharge Activity: Limit activity as instructed Patient Instructions: Opioid Safety Activity Restrictions/Additional Instructions: Case management make arrangements for you to be scheduled for outpatient monoclonal antibodies. Remain at home monitor your oxygen sats with the pulse oximeter given to you today. Return to the emergency room if you have consistent sats below 90% while at rest. Coding Level of Care Code ED Military Science Teacher for Ceasar Fwmaria luisa Exam Detailed
[2021-12-04 06:28] LABS: Basophils # 0.1 10^3/uL (0.0-0.1); Basophils % 0.9 %; Eosinophils # 0.2 10^3/uL (0.0-0.8); Eosinophils % 2.9 %; Hematocrit 44.5 % (42.0-52.0); Hemoglobin 15.7 g/dL (11.7-16.6); Lymphocytes # 0.8 10^3/uL (0.8-4.8); Lymphocytes % 13.5 %; Mean Corpuscular HGB Conc 35.3 g/dL (30.0-36.0); Mean Corpuscular Hemoglobin 29.5 pg (28.0-34.0); Mean Corpuscular Volume 83.6 fl (80-94); Mean Platelet Volume 12.4 fL (7.4-10.4); Monocytes # 0.6 10^3/uL (0.2-0.9); Monocytes % 9.8 %; Neutrophils # 4.15 10^3/uL (1.8-7.7); Neutrophils % 71.7 %; Nucleated Red Blood Cells % 0 %; Platelet Count 226 10^3/cmm (130-400); Red Blood Count 5.32 10^6/uL (4.1-5.3); Red Cell Distribution Width 12.5 % (12.1-15.1); White Blood Count 5.8 10^3/uL (4.0-10.0)
[2021-12-04 06:31] LABS: ABG PCO2 35.2 mmHg (35-45); ABG PH Result 7.42 (7.35-7.45); Arterial Blood Gas Hematocrit 46.2 % (42-52); Base Excess ABG -1.4 mmol/L (-2.0-2.0); Blood Gas Allen Test Pos; Blood Gas Sample Site Radial, right; Blood Gas Sample Type Arterial; Carboxyhemoglobin < 0.0 %THgb (0.4-20.1); HCO3 ABG 22.6 mmol/L (22-26); HGB O2 Sat 95.5 % (95-100); Ionized Calcium Level - ABG 1.2 mmol/L (1.1-1.4); Methemoglobin 0.4 % (0.4-1.5); Oxygen Device ROOM AIR; Oxygen Saturation ABG 95.7; PO2 ABG 82.7 mmHg (80.0-100.0); Potassium Level - ABG 3.8 mmol/L (3.5-5.0); Total Hemoglobin 15.1 g/dL (14-18)
[2021-12-04] MEDS: insulin regular-human 100 units/1 mL 10 UNIT IVP (06:41)
[2021-12-04 06:58] LABS: Add Urine Microscopic? NO; Charge for UA Resulting for Rev
[2021-12-04 07:06] LABS: Alanine Aminotransferase 75 U/L (0-41); Albumin Level 4.6 g/dL (3.5-5.2); Alkaline Phosphatase 90 IU/L (40-130); Aspartate Amino Transferase 76 U/L (0-40); Blood Urea Nitrogen 8 mg/dL (6-20); Carbon Dioxide 18 mmol/L (22-29); Chloride 99 mmol/L (98-107); Creatine Phosphokinase 46 U/L (39-308); Globulin 2.5 g/dL (1.3-4.6); Glomerular Filtration Rate 157.1 mL/min (90-130); Glucose 309 mg/dL (65-115); Osmolality Calculated 292 mOsm/kg (285-295); Sodium 136 mmol/L (136-145); Total Bilirubin 0.4 mg/dL (0.15-1.2); Total Protein 7.1 g/dL (6.6-8.7)
[2021-12-04 07:07] LABS: Bilirubin Urine Neg (Negative); Blood Urine Neg (Negative); Glucose Urine UA 4+ (Normal); Ketones Urine 2+ (Negative); Leukocyte Esterase Urine Negative (Negative); Nitrate Urine Negative (Negative); Protein Urine Neg (Negative); Specific Gravity, Urine 1.015 (1.005-1.030); Urine Appearance Clear (CLEAR); Urine Color Yellow (Yellow); Urobilinogen Urine Norm (Negative); pH Urine 5 (5-7)
[2021-12-04 07:11] VITALS: BP 145/86; PULSE 106; RESP 18; O2SAT 94
[2021-12-04 08:15] VITALS: BP 118/69; PULSE 104; RESP 20; O2SAT 94
[2021-12-04 08:43] LABS: Adenovirus Not Detected (NOT DETECT); Chlamydia Pneumoniae Not Detected (NOT DETECT); Coronavirus 229E,HKU1,NL63,OC4 Not Detected (NOT DETECT); Human Metapneumovirus Not Detected (NOT DETECT); Human Rhinovirus/Enterovirus Not Detected (NOT DETECT); Influenza A Not Detected (NOT DETECT); Influenza A H1 Not Detected (NOT DETECT); Influenza A H1-2009 Not Detected (NOT DETECT); Influenza A H3 Not Detected (NOT DETECT); Influenza B Not Detected (NOT DETECT); Mycoplasma Pneumoniae Not Detected (NOT DETECT); Parainfluenza Virus Type 1 Not Detected (NOT DETECT); Parainfluenza Virus Type 2 Not Detected (NOT DETECT); Parainfluenza Virus Type 3 Not Detected (NOT DETECT); Parainfluenza Virus Type 4 Not Detected (NOT DETECT); Respiratory Syncytial Virus A Not Detected (NOT DETECT); Respiratory Syncytial Virus B Not Detected (NOT DETECT); SARS-COV-2 Detected (NOT DETECT)
[2021-12-04 09:33] VITALS: BP 126/67; PULSE 105; O2SAT 95
--- NOTE | 2021-12-05 11:34 | PC.NURSE ---
Notified pt of COVID (+)
== END 2021-12-04 09:36 | disposition home or self-care (01) ==
PROVIDERS: Emergency Provider Family Medicine; PCP Family Medicine
DX: U07.1 COVID-19 (principal); Z79.4 Long term (current) use of insulin; E11.9 Type 2 diabetes mellitus without complications; G35 Multiple sclerosis
CPT/HCPCS: 36416; 36600; 71045; 80051; 80053; 81003; 82330; 82550; 82805; 82962; 85025; 87635; 93005; 96374; 99284; J1815

== ENCOUNTER 2021-12-05 12:49 | Outpatient (CLI) | payer BC, SELFPAY ==
[2021-12-05 13:20] VITALS: BP 145/85; PULSE 91; RESP 16; TEMP 36.6; O2SAT 96; BMI 34.2
[2021-12-05 13:44] VITALS: BP 146/92; PULSE 91; RESP 18; TEMP 36.6; O2SAT 96
[2021-12-05 16:51] VITALS: BP 149/88; PULSE 92; RESP 18; TEMP 36.7; O2SAT 96
== END 2021-12-05 12:50 | disposition home or self-care (01) ==
LOC: OPS 12:51
PROVIDERS: PCP Family Medicine; Visit Provider Family Medicine
DX: U07.1 COVID-19 (principal)
CPT/HCPCS: 96365

== ENCOUNTER 2022-01-31 02:40 | Emergency (ER) | payer OTHER, SELFPAY ==
[2022-01-31 02:47] VITALS: BP 118/82; PULSE 130; RESP 20; TEMP 36.8; O2SAT 96; BMI 34.2
--- NOTE | 2022-01-31 02:54 | XRR_ITS ---
PROCEDURE INFORMATION: Exam: XR Right Knee Exam date and time: 01/31/2022 2:54 AM Age: 32 years old Clinical indication: Right; Patient HX: C/O worsening RT knee pain. History of twisting injury in November of 2021. TECHNIQUE: Imaging protocol: XR Right knee. Views: 3 views. COMPARISON: No relevant prior studies available. FINDINGS: Bones/joints: Normal. Soft tissues: Normal. XR/XR knee RT 3V* [id number] IMPRESSION: No acute findings.
--- NOTE | 2022-01-31 02:59 | W.ED.EXTPRO ---
HPI - Extremity Problem General: Chief complaint: Extremity Injury, Lower Stated complaint: Rt Knee Pain Time Seen by Provider: 01/31/22 02:42 Source: patient Mode of arrival: ambulatory Limitations: no limitations History of Present Illness: 32-year-old male who injured his right knee in November. He fell down the bank but twisted his knee. He has been seen by Dr. Ferris he supposed get an MRI but he has not received his MRI yet. He states that overnight he started having increasing pain to that knee with some swelling. He had a subjective fever at home states pain currently is a 7 out of 10 no redness to the knee denies any new injuries denies any pain in his calf. Associated symptoms: Deny chest pain, fever(s) or rash Review of Systems Const: Denies: fever(s), chills, body aches or change in appetite Eyes: Denies: blurry vision or eye discomfort ENMT: Denies: throat pain or dental pain Card: Denies: chest pain Resp: Denies: dyspnea GI: Denies: abdominal pain, nausea, vomiting or diarrhea : Denies: dysuria Musc: Reports: extremity pain and extremity swelling Skin/Breast: Denies: rash Neuro: Denies: headache(s) Psych: Denies: depression Kade/Lymph: Denies: easy bruising All/Imm: Denies: urticaria PFSH ED PFSH: Medical History Diabetes Multiple sclerosis Family History Other Cancer Diabetes Social History Smoking and tobacco status: never smoked Alcohol intake: never History of recent travel: No Physical Exam Const: COMMON NORMALS: no acute distress, patient oriented x3 and healthy appearing HENMT: COMMON NORMALS: normocephalic and atraumatic HEAD & SCALP: normocephalic and atraumatic Eye: COMMON NORMALS: Equal, round and reactive pupils present and EOMs intact bilaterally PUPIL: Yes Equal, round and reactive pupils present Neck/C-Spine: COMMON NORMALS: full ROM and supple Chest: COMMONS NORMALS: normal inspection of the chest and normal palpation of entire chest wall Resp: COMMON NORMALS: normal respiratory effort, No retractions, No use of accessory muscles and clear to auscultation bilaterally AUSCULTATION: clear to auscultation bilaterally Cardio: COMMON NORMALS: regular rate, regular rhythm and No murmurs present (Cardio) RATE: regular rate RHYTHM: regular rhythm GI: COMMON NORMALS: Normal to inspection, nondistended, normoactive bowel sounds present, Soft to palpation, non-tender and no masses PALPATION: Yes Soft to palpation Extremity: NARRATIVE EXTREMITY EXAM: Tenderness over right knee with some slight joint effusion no warmth to touch no signs of septic joint distal pulses intact calf is not swollen or tender Neuro: COMMON NORMALS: patient oriented x3, moves all extremities and no focal motor deficits Psych: COMMON NORMALS: mental status grossly normal, Normal thought process present and cooperative THOUGHT PROCESS: Normal thought process present Skin: COMMON NORMALS: no rashes or lesions noted and no wounds GENERAL SKIN EXAM: no rashes or lesions noted Course Vital Signs: Vital signs: Vital Signs Temperature 98.3 F 01/31/22 02:47 Pulse Rate 111 H 01/31/22 04:18 Respiratory Rate 18 01/31/22 04:18 Blood Pressure 152/82 01/31/22 04:18 Pulse Oximetry 95 01/31/22 04:18 MDM - Extremity (Nontraumatic) Medical Decision Making Patient presents here with knee pain likely from a knee sprain white count here is normal exam is benign no signs of septic joint he is stable for discharge is to follow-up with Dr. Ferris and return if worsening he understands agrees to plan. Lab Data : 01/31/22 04:10 Radiology Impressions Knee X-Ray 01/31/22 02:54 IMPRESSION: No acute findings. Laboratory Results WBC 7.4 10^3/uL (4.0-10.0) 01/31/22 04:10 RBC 5.39 10^6/uL (4.1-5.3) H 01/31/22 04:10 Hgb 15.8 g/dL (11.7-16.6) 01/31/22 04:10 Hct 46.0 % (42.0-52.0) 01/31/22 04:10 MCV 85.3 fl (80-94) 01/31/22 04:10 MCH 29.3 pg (28.0-34.0) 01/31/22 04:10 MCHC 34.3 g/dL (30.0-36.0) 01/31/22 04:10 RDW 12.6 % (12.1-15.1) 01/31/22 04:10 Plt Count 225 10^3/cmm (130-400) 01/31/22 04:10 MPV 11.1 fL (7.4-10.4) H 01/31/22 04:10 Neut % (Auto) 79.8 % 01/31/22 04:10 Lymph % (Auto) 10.1 % 01/31/22 04:10 [place] % (Auto) 7.5 % 01/31/22 04:10 Eos % (Auto) 1.6 % 01/31/22 04:10 Baso % (Auto) 0.5 % 01/31/22 04:10 Neut # (Auto) 5.87 10^3/uL (1.8-7.7) 01/31/22 04:10 Lymph # (Auto) 0.7 10^3/uL (0.8-4.8) L 01/31/22 04:10 [place] # (Auto) 0.6 10^3/uL (0.2-0.9) 01/31/22 04:10 Eos # (Auto) 0.1 10^3/uL (0.0-0.8) 01/31/22 04:10 Baso # (Auto) 0.0 10^3/uL (0.0-0.1) 01/31/22 04:10 Nucleated RBC % (auto) 0 % 01/31/22 04:10 Nucleated RBCs # 0.0 /100WBC 01/31/22 04:10 Discharge Plan Discharge Patient Disposition: Home Clinical Impression: Knee pain, right Qualifiers: Chronicity: acute Qualified Code(s): M25.561 - Pain in right knee Condition: Stable Prescriptions: New hydrocodone-acetaminophen 5-325 mg tablet 1 tab PO Q6H PRN (Reason: pain) Qty: 14 0RF No Action Ocrevus 30 mg/mL solution 600 mg IV ONCE 180 Days Qty: 10 1RF atorvastatin 10 mg Tablet 10 mg PO DAILY 0RF Rx Instructions: TAKE IN THE EVENING baclofen 10 mg Tablet 20 mg PO TID 0RF metformin 1,000 mg Tablet 1,000 mg PO BID 0RF lisinopril 5 mg Tablet 5 mg PO DAILY 0RF duloxetine [Cymbalta] 60 mg Capsule,Delayed Release(Dr/Ec) 60 mg PO BEDTIME 0RF Lantus Solostar U-100 Insulin 100 unit/mL (3 mL) Insulin Pen See Rx Instructions .ROUTE .COMPLEX 0RF Rx Instructions: PT STATES HE HAS BEEN TAKING 34 UNITS AT BEDTIME gabapentin 300 mg Tablet Extended Release 24 Hr See Rx Instructions .ROUTE .COMPLEX 0RF Rx Instructions: PT STATES HE TAKES 900mg QID (900 AM, 900, 3PM, 300 BEDTIME) Humalog U-100 Insulin See Rx Instructions .ROUTE .COMPLEX 0RF Rx Instructions: PT USES THIS ON A SLIDING SCALE, AND HASN'T HAD TO USE IT LATELY. Excedrin Migraine 250-250-65 mg Tablet 1 tab PO Q6H PRN (Reason: Headache) 0RF Discharge Orders: Discharge ED (Routine); Ordered 01/31/22 Ordered By: Manjit Sigala Referrals: Stephania Barboza DO [Primary Care Provider] - Discharge Diet: Advance as tolerated Discharge Activity: Resume usual activity Patient Instructions: Knee Pain (ED), Opioid Safety Coding Level of Care Code ED Nanoscience Technician for Abig Fwd Exam Comprehensive
[2022-01-31] MEDS: HYDROcodone-acetaminophen 7.5-325 mg Tablet 1 TAB PO (03:06)
[2022-01-31 03:08] VITALS: BP 152/82; PULSE 125; RESP 18; O2SAT 95
--- NOTE | 2022-01-31 03:32 | PC.NURSE ---
ice pack to right knee. Pt tolerated well
[2022-01-31 03:45] VITALS: BP 144/88; PULSE 102; RESP 18; O2SAT 93
[2022-01-31] MEDS: sodium chloride 0.9% 1,000 ML 999 ML IV (04:11)
[2022-01-31] MEDS: ondansetron 2 mg/ML SDV 2 mL 4 MG IVP (04:12)
[2022-01-31 04:14] VITALS: RESP 18; O2SAT 96
[2022-01-31] MEDS: morphine 4 mg/mL SDV 1 mL IVP (04:14)
[2022-01-31 04:18] VITALS: BP 152/82; PULSE 111; RESP 18; O2SAT 95
[2022-01-31 04:20] LABS: Basophils % 0.5 %; Eosinophils # 0.1 10^3/uL (0.0-0.8); Eosinophils % 1.6 %; Hemoglobin 15.8 g/dL (11.7-16.6); Lymphocytes # 0.7 10^3/uL (0.8-4.8); Lymphocytes % 10.1 %; Mean Corpuscular HGB Conc 34.3 g/dL (30.0-36.0); Mean Corpuscular Hemoglobin 29.3 pg (28.0-34.0); Mean Corpuscular Volume 85.3 fl (80-94); Mean Platelet Volume 11.1 fL (7.4-10.4); Monocytes # 0.6 10^3/uL (0.2-0.9); Monocytes % 7.5 %; Neutrophils # 5.87 10^3/uL (1.8-7.7); Neutrophils % 79.8 %; Nucleated Red Blood Cells % 0 %; Platelet Count 225 10^3/cmm (130-400); Red Blood Count 5.39 10^6/uL (4.1-5.3); Red Cell Distribution Width 12.6 % (12.1-15.1); White Blood Count 7.4 10^3/uL (4.0-10.0)
[2022-01-31 04:53] VITALS: BP 149/87; PULSE 99; RESP 18; O2SAT 96
== END 2022-01-31 04:53 | disposition home or self-care (01) ==
PROVIDERS: Emergency Provider Emergency Medicine; PCP Family Medicine
DX: M25.561 Pain in right knee (principal); W17.81XA Fall down embankment (hill), initial encounter; E11.9 Type 2 diabetes mellitus without complications; G35 Multiple sclerosis; Z79.4 Long term (current) use of insulin
CPT/HCPCS: 73562; 85025; 96361; 96374; 96375; 99284; J2270; J2405; J7030

== ENCOUNTER 2022-02-04 10:15 | Outpatient (CLI) | payer OTHER, SELFPAY ==
--- NOTE | 2022-02-04 10:20 | MR_ITS ---
WS: [id number] MRI RIGHT KNEE NONCONTRAST TECHNIQUE: Axial PD, coronal PD fat sat, coronal PD, sagittal PD, and sagittal PD fat-sat images obta ined. CLINICAL INFORMATION: M25.561 - Pain in right knee COMPARISON: None. FINDINGS: Distal quadriceps and patella tendons are intact. Normal patella. Normal ACL and PCL. Medial and late ral meniscus are normal in appearance. No acute appearing meniscal tears. Mild prepatellar soft tissu e edema. Tiny joint effusion. Mild chondromalacia patella. No subchondral edema. Normal medial and lateral patellar retinaculum. No rmal medial and lateral collateral ligaments. Normal popliteal fossa. Normal bone marrow signal in th e medial and lateral femoral condyles and tibial plateau. Mild chondromalacia. MR/MR knee RT wo con* [id number] IMPRESSION: 1. Normal ACL and PCL. 2. No acute appearing meniscal tears. 3. Normal medial and lateral collateral ligaments. 4. No bony contusion. 5. Mild chondromalacia patella. Normal popliteal fossa. 6. Tiny joint effusion. Outbridge grading:
== END 2022-02-04 10:16 | disposition home or self-care (01) ==
LOC: RAD 10:16
PROVIDERS: PCP Family Medicine; Visit Provider Orthopaedic Surgery
DX: M22.41 Chondromalacia patellae, right knee (principal); M25.561 Pain in right knee
CPT/HCPCS: 73721

== ENCOUNTER 2022-04-07 09:35 | Outpatient (CLI) | payer BC, OTHER, SELFPAY ==
[2022-04-07 10:03] VITALS: BP 125/77; PULSE 82; RESP 18; TEMP 37.1; O2SAT 96
[2022-04-07] MEDS: sodium chloride 0.9% 250 ML 50 ML IV (10:17)
[2022-04-07] MEDS: diphenhydrAMINE 50 mg/mL SDV 1mL 25 MG IVP (10:18)
[2022-04-07] MEDS: acetaminophen 500 mg Tablet 1000 MG PO (10:24)
[2022-04-07 11:07] VITALS: BP 128/73; PULSE 80; RESP 18; TEMP 37.1; O2SAT 97
[2022-04-07 11:35] VITALS: BP 129/76; PULSE 81; RESP 18; TEMP 36.8; O2SAT 96
[2022-04-07 12:56] VITALS: BP 139/77; PULSE 80; RESP 18; TEMP 36.1; O2SAT 95
== END 2022-04-07 09:36 | disposition home or self-care (01) ==
LOC: ONCMED 09:36
PROVIDERS: PCP Family Medicine; Referring Provider Specialist; Visit Provider Specialist
DX: G35 Multiple sclerosis (principal)
CPT/HCPCS: 96365; 96366; 96375; J1200; J2350; J2930; J7040; J7050

== ENCOUNTER 2023-11-16 14:17 | Emergency (ER) | payer SELFPAY ==
[2023-11-16 14:30] VITALS: BP 158/91; PULSE 119; RESP 16; TEMP 36.6; O2SAT 97; BMI 35.6
--- NOTE | 2023-11-16 14:47 | ED_ITS ---
HPI - Abdominal Pain 2 General: Chief Complaint: Abdominal Pain Stated Complaint: abd pain,n/v/d Time Seen by Provider: 11/16/23 14:19 Source: patient Mode of arrival: ambulatory History of Present Illness: 33-year-old male presents to the emergen cy room with complaints of epigastric discomfort nausea no hematochezia melena hematemesis cough noticed no dysuria urgency or frequency no fever sweats or chills no previous abdominal surgeries patient is diabetic is on insulin is also taking Ozempic although he skipped his last dose MD elicited complaint: abdominal pain Pertinent past history: none Location: None Severity: mild Quality: cramping Radiation: none Exacerbating factors: nothing Relieving factors: nothing Associated Symptoms: Reports GI cramping, nausea, poor appetite and vomiting; Denies anorexia, belching, bloating, change in bowel habits, change in stool character, chills, coffee ground emesis, constipation, diarrhea, dyspepsia, dysuria, excessive flatus, fever(s), heartburn, hematochezia, hematuria, hematemesis, fecal incontinence, loose stools, melena and syncope Review of Systems 2 Const: Denies: fever(s) or chills Card: Denies: syncope Resp: Denies: dyspnea GI: Reports: nausea, vomiting and GI cramping; Denies: hematemesis, coffee ground emesis, heartburn, diarrhea, constipation, bloating, belching, excessive flatus, fecal incontinence, change in bowel habits, change in stool character, hematochezia or melena : Denies: dysuria or hematuria Musc: Denies: neck pain or back pain Skin/Breast: Denies: rash PFSH ED 2 PFSH: Medical History (Updated 11/16/23 @ 17:27 by Brett Gonzalez DO) Multiple sclerosis Diabetes Surgical History (Updated 08/11/22 @ 08:56 by Damien Le DO) History of endoscopy No pertinent past surgical history History of esophagogastroduodenoscopy Family History Other Cancer Diabetes Social History Smoking and tobacco/nicotine status: former use of tobacco/nicotine Alcohol intake: never Physical Exam 2 Const: GENERAL APPEARANCE: cooperative and comfortable O RIENTATION/CONSCIOUSNESS: Yes awake, Yes oriented to person, Yes oriented to place and Yes oriented to time HENMT: COMMON NORMALS: normocephalic, atraumatic and hearing grossly normal bilaterally HEAD & SCALP: normocephalic and atraumatic Resp: COMMON NORMALS: normal respiratory effort, No retractions, No use of accessory muscles and clear to auscultation bilaterally AUSCULTATION: clear to auscultation bilaterally Cardio: COMMON NORMALS: regular rate, regular rhythm and No murmurs present (Cardio) RATE: regular rate RHYTHM: regular rhythm GI: COMMON NORMALS: No hepatosplenomegaly present AUSCULTATION: Yes normoactive bowel sounds PALPATION: Yes Tenderness to palpation present (GI) (Epigastric left upper quadrant), No Guarding due to palpation present (GI) and Yes No hepatosplenomegaly present Extremity: COMMON NORMALS: normal to inspection, capillary refill normal, no clubbing, cyanosis or edema, no calf tenderness and no pedal edema Neuro: SENSORIUM/ORIENTATION: Yes oriented to person, Yes oriented to place and Yes oriented to time Skin: COMMON NORMALS: no rashes or lesions noted GENERAL SKIN EXAM: no rashes or lesions noted Course 2 Vital Signs: Vital signs: Vital Signs Temperature 97.9 F 11/16/23 14:30 Pulse Rate 119 H 11/16/23 14:30 Respiratory Rate 16 11/16/23 14:30 Blood Pressure 158/91 11/16/23 14:30 Pulse Oximetry 97 11/16/23 14:30 Oxygen Delivery Me thod Room Air 11/16/23 14:30 MDM - Abdominal Pain Medical Decision Making Labs and imaging reviewed no acute findings. Suspect patient likely has some delayed gastric emptying may be worsened by the Ozempic does not have any signs of acute pancreatitis started on Reglan and Protonix hold Ozempic for now and follow-up with his primary care doctor Medical Records I reviewed the patient's medical records. Lab Data I reviewed the patient's lab results. 11/16/23 14:42 11/16/23 14:42 Labs/Radiology: Radiology Impressions Abdomen/Pelvis CT 11/16/23 15:08 IMPRESSION: 1. No acute findings within the abdomen or pelvis. 2. Mild hepatosplenomegaly Laboratory Results WBC 9.19 10^3/uL (3.29-11.43) 11/16/23 14:42 RBC 5.69 10^6/uL (3.85-5.65) H 11/16/23 14:42 Hgb 16.30 g/dL (11.27-16.99) 11/16/23 14:42 Hct 47.3 % (37-53) 11/16/23 14:42 MCV 83.1 fl (82-101) 11/16/23 14:42 MCH 28.6 pg (27-33) 11/16/23 14:42 MCHC 34.5 g/dL (30-55) 11/16/23 14:42 RDW 13.0 % (12.1-15.1) 11/16/23 14:42 Plt Count 274 10^3/cmm (157-399) 11/16/23 14:42 MPV 10.5 fL (7.4-10.4) H 11/16/23 14:42 Neut % (Auto) 77.2 % 11/16/23 14:42 Lymph % (Auto) 8.7 % 11/16/23 14:42 [place] % (Auto) 7.2 % 11/16/23 14:42 Eos % (Auto) 6.1 % 11/16/23 14:42 Baso % (Auto) 0.4 % 11/16/23 14:42 Neut # (Auto) 7.09 10^3/uL (1.8-7.7) 11/16/23 14:42 Lymph # (Auto) 0.8 10^3/uL (0.8-4.8) 11/16/23 14:42 [place] # (Auto) 0.7 10^3/uL (0.2-0.9) 11/16/23 14:42 Eos # (Auto) 0.6 10^3/uL (0.0-0.8) 11/16/23 14:42 Baso # (Auto) 0.0 10^3/uL (0.0-0.1) 11/16/23 14:42 Nucleated RBC % (auto) 0 % 11/16/23 14:42 Nucleated RBCs # 0.0 /100WBC 11/16/23 14:42 Sodium 138 mmol/L (136-145) 11/16/23 14:42 Potassium 4.1 mmol/L (3.5-5.1) 11/16/23 14:42 Chloride 102 mmol/L (98-107) 11/16/23 14:42 Carbon Dioxide 23 mmol/L (22-29) 11/16/23 14:42 Anion Gap 17.1 (5-19) 11/16/23 14:42 BUN 9 mg/dL (6-20) 11/16/23 14:42 Creatinine 0.6 mg/dL (0.7-1.2) L 11/16/23 14:42 GFR Calculation 155.2 mL/min (90-130) H 11/16/23 14:42 Glucose 158 mg/dL (65-115) H 11/16/23 14:42 Calculated Osmolality 288 mOsm/kg (285-295) 11/16/23 14:42 Calcium 9.2 mg/dL (8.5-10.5) 11/16/23 14:42 Total Bilirubin 0.9 mg/dL (0.15-1.2) 11/16/23 14:42 AST 20 U/L (0-40) 11/16/23 14:42 ALT 36 U/L (0-41) 11/16/23 14:42 Alkaline Phosphatase 73 U/L (40-130) 11/16/23 14:42 Total Protein 6.9 g/dL (6.6-8.7) 11/16/23 14:42 Albumin 4.4 g/dL (3.5-5.2) 11/16/23 14:42 Globulin 2.5 g/dL (1.3-4.6) 11/16/23 14:42 Lipase 25 U/L (13-60) 11/16/23 14:42 Urine Color Yellow (Yellow) 11/16/23 16:41 Urine Appearance Clear (CLEAR) 11/16/23 16:41 Urine pH 5 (5-7) 11/16/23 16:41 Ur Specific [place] 1.025 (1.005-1.030) 11/16/23 16:41 Urine Protein Neg (Negative) 11/16/23 16:41 Urine Glucose (UA) Norm (Normal) 11/16/23 16:41 Urine Ketones 1+ (Negative) H 11/16/23 16:41 Urine Blood Neg (Negative) 11/16/23 16:41 Urine Nitrate Negative (Negative) 11/16/23 16:41 Urine Bilirubin 1+ (Negative) H 11/16/23 16:41 Urine Urobilinogen Neg mg/dL (Negative) 11/16/23 16:41 Ur Leukocyte Esterase Negative (Negative) 11/16/23 16:41 Serum Ketones Negative (Negative) 11/16/23 14:42 All radiology interpretation(s) finalized by discharge Discharge Plan Discharge Patient Disposition: Home Clinical Impression: Abdominal pain Condition: Stable Prescriptions: New Reglan 10 mg tablet 10 mg PO Q6H PRN (Reason: nausea and vomiting) Qty: 30 0RF pantoprazole 40 mg tablet,delayed release (DR/EC) 40 mg PO DAILY Qty: 30 0RF No Action epinephrine 0.3 mg/0.3 mL auto-injector 0.3 mg IM Q4H PRN Ocrevus 30 mg/mL solution 600 mg IV ONCE 180 Days Qty: 10 1RF atorvastatin 10 mg Tablet 10 mg PO DAILY Rx Instructions: TAKE IN THE EVENING baclofen 10 mg Tablet 20 mg PO TID metformin 1,000 mg Tablet 1,000 mg PO BID lisinopril 5 mg Tablet 5 mg PO DAILY duloxetine [Cymbalta] 60 mg Capsule,Delayed Release(Dr/Ec) 60 mg PO BEDTIME Lantus Solostar U-100 Insulin 100 unit/mL (3 mL) Insulin Pen See Rx Instructions .ROUTE .COMPLEX Rx Instructions: PT STATES HE HAS BEEN TAKING 34 UNITS AT BEDTIME gabapentin 300 mg Tablet Extended Release 24 Hr See Rx Instructions .ROUTE .COMPLEX Rx Instructions: PT STATES HE TAKES 900mg QID (900 AM, 900, 3PM, 300 BEDTIME) Humalog U-100 Insulin See Rx Instructions .ROUTE .COMPLEX Rx Instructions: PT USES THIS ON A SLIDING SCALE, AND HASN'T HAD TO USE IT LATELY. Excedrin Migraine 250-250-65 mg Tablet 1 tab PO Q6H PRN (Reason: Headache) hydrocodone-acetaminophen 5-325 mg tablet 1 tab PO Q6H PRN (Reason: pain) Qty: 14 0RF Discharge Orders: Discharge ED (Routine); Ordered 11/16/23 Ordered By: Brett Gonzalez Referrals: Stephania Barboza, [Primary Care Provider] - Discharge Diet: Clear Liquid Discharge Activity: Increase activity as tolerated Patient Instructions: Abdominal Pain (ED), Opioid Safety, Pain Management Activity Restrictions/Additional Instructions: Thank you for choosing [facility] for your healthcare needs today. Please realize this is an emergency room and that we are providing you with a medical screening exam and this may not be complete and all inclusive of all the testing and or work up that you may need to determine your ailment or severity of your illness. It is very important that you follow up as instructed or that you return to the Emergency Department should you have concerns or if your condition changes or worsens in any way. You were seen today for abdominal pain CT did not show any acute pathology your laboratory tests did not show any clinically significant abnormalities. Recommend that you follow-up with your primary care doctor in the next 7 to 10 days. Clear liquid diet for the next 24 hours and advance as tolerated also recommend that you hold your Ozempic until you see your doctor. You may need further testing such as gastric emptying study or a HIDA scan depending on if your symptoms persist or worsen. Recommend that you start Reglan 1 every 6 hours as needed for nausea or abdominal discomfort and Protonix 40 mg once daily Coding Level of Care Code ED Screw Driver Operator for Ceasar Gay
[2023-11-16 14:52] LABS: Basophils % 0.4 %; Eosinophils # 0.6 10^3/uL (0.0-0.8); Eosinophils % 6.1 %; Hematocrit 47.3 % (37-53); Lymphocytes # 0.8 10^3/uL (0.8-4.8); Lymphocytes % 8.7 %; Mean Corpuscular HGB Conc 34.5 g/dL (30-55); Mean Corpuscular Hemoglobin 28.6 pg (27-33); Mean Corpuscular Volume 83.1 fl (82-101); Mean Platelet Volume 10.5 fL (7.4-10.4); Monocytes # 0.7 10^3/uL (0.2-0.9); Monocytes % 7.2 %; Neutrophils # 7.09 10^3/uL (1.8-7.7); Neutrophils % 77.2 %; Nucleated Red Blood Cells % 0 %; Platelet Count 274 10^3/cmm (157-399); Red Blood Count 5.69 10^6/uL (3.85-5.65); White Blood Count 9.19 10^3/uL (3.29-11.43)
[2023-11-16 15:06] LABS: Ketone (Acetest) Serum Negative (Negative)
[2023-11-16 15:07] LABS: Alanine Aminotransferase 36 U/L (0-41); Albumin Level 4.4 g/dL (3.5-5.2); Alkaline Phosphatase 73 U/L (40-130); Aspartate Amino Transferase 20 U/L (0-40); Blood Urea Nitrogen 9 mg/dL (6-20); Calcium 9.2 mg/dL (8.5-10.5); Carbon Dioxide 23 mmol/L (22-29); Chloride 102 mmol/L (98-107); Globulin 2.5 g/dL (1.3-4.6); Glomerular Filtration Rate 155.2 mL/min (90-130); Glucose 158 mg/dL (65-115); Lipase 25 U/L (13-60); Osmolality Calculated 288 mOsm/kg (285-295); Sodium 138 mmol/L (136-145); Total Bilirubin 0.9 mg/dL (0.15-1.2); Total Protein 6.9 g/dL (6.6-8.7)
--- NOTE | 2023-11-16 15:08 | CTR_ITS ---
PROCEDURE INFORMATION: Exam: CT Abdomen And Pelvis Without Contrast Exam date and time: 11/16/2023 3:16 PM Age: 33 years old Clinical indication: Abdominal pain TECHNIQUE: Imaging protocol: Computed tomography of the abdomen and pelvis without contrast. Radiation optimization: All CT scans at this facility use at least one of these dose optimization techniques: automated exposure control; mA and/or kV adjustment per patient size (includes targeted exams where dose is matched to clinical indication); or iterative reconstruction. REPORTING DATA: Count of CT and Cardiac NM exams in prior 12 months: This patient has received 0 known CTs and 0 known cardiac nuclear medicine studies in the 12 months prior to the current study. COMPARISON: CR XR chest 1V portable [id number] 12/04/2021 6:48 AM RADIATION DOSE METRICS: Total DLP (mGy-cm): 1177.1 FINDINGS: Lungs: Lung bases are clear. Liver: Mildly enlarged.. No mass. Gallbladder and bile ducts: Normal. No calcified stones. No ductal dilation. Pancreas: Unremarkable. Main pancreatic duct is not significantly dilated. Spleen: Spleen is mildly enlarged measuring 14 cm in greatest dimension. Adrenal glands: Normal. No mass. Kidneys and ureters: Kidneys are unremarkable. No calculi or hydronephrosis detected. Stomach and bowel: Unremarkable. No obstruction. No mucosal thickening. Appendix: No evidence of acute appendicitis. Intraperitoneal space: Unremarkable. No free air. No significant fluid collection. Vasculature: Scattered atherosclerotic changes of the abdominal aorta and iliac vessels. No aortic aneurysm. Lymph nodes: Unremarkable. No enlarged lymph nodes. Urinary bladder: Unremarkable as visualized. Reproductive: Unremarkable as visualized. Bones/joints: Unremarkable. No acute fracture. Soft tissues: Unremarkable. CT/CT abdomen pelvis con [id number] IMPRESSION: 1. No acute findings within the abdomen or pelvis. 2. Mild hepatosplenomegaly
[2023-11-16 15:10] LABS: Anion Gap 17.1 (5-19); Potassium 4.1 mmol/L (3.5-5.1)
[2023-11-16] MEDS: sodium chloride 0.9% 1,000 ML 999 ML IV ×2 (15:11→16:58)
[2023-11-16] MEDS: ondansetron 2 mg/ML SDV 2 mL 4 MG IVP (15:11)
[2023-11-16 16:56] LABS: Add Urine Microscopic? NO; Charge for UA Resulting for Rev
[2023-11-16 17:07] LABS: Bilirubin Urine 1+ (Negative); Blood Urine Neg (Negative); Glucose Urine UA Norm (Normal); Ketones Urine 1+ (Negative); Leukocyte Esterase Urine Negative (Negative); Nitrate Urine Negative (Negative); Protein Urine Neg (Negative); Specific Gravity, Urine 1.025 (1.005-1.030); Urine Appearance Clear (CLEAR); Urine Color Yellow (Yellow); Urobilinogen Urine Neg (Negative); pH Urine 5 (5-7)
[2023-11-16] MEDS: lidocaine 2% viscous 15 ML, aluminum-mag hydrox-simethicon 30 ML, sucralfate oral liq 1 GM PO (17:27)
== END 2023-11-16 18:24 | disposition home or self-care (01) ==
PROVIDERS: Emergency Provider Family Medicine; PCP Family Medicine
DX: R10.13 Epigastric pain (principal); R16.2 Hepatomegaly with splenomegaly, not elsewhere classified; Z79.4 Long term (current) use of insulin; Z79.84 Long term (current) use of oral hypoglycemic drugs; Z87.891 Personal history of nicotine dependence; G35 Multiple sclerosis; E11.9 Type 2 diabetes mellitus without complications
CPT/HCPCS: 74176; 80053; 81003; 82009; 83690; 85025; 96361; 96374; 99285; J2405; J7030